=== PATIENT | female | born 2000 | race Caucasian/White ===

== ENCOUNTER 2024-03-17 10:32 | Outpatient (REF) | payer OTHER, SELFPAY ==
[2024-03-18 11:44] LABS: Influenza A PCR NEGATIVE (Negative); Influenza B PCR NEGATIVE (Negative); Resp Syncy Virus RNA Qual PCR NEGATIVE (Negative); SARS COV2 PCR INHOUSE NEGATIVE (Negative)
== END 2024-03-17 10:33 | disposition home or self-care (01) ==
LOC: HO.HMGCLNP 10:32
PROVIDERS: Visit Provider Nurse Practitioner Family
DX: Z11.52 Encounter for screening for COVID-19 (principal); R09.89 Other specified symptoms and signs involving the circulatory and respiratory systems; J06.9 Acute upper respiratory infection, unspecified
CPT/HCPCS: 0241U

== ENCOUNTER → 2024-03-17 15:36 | Outpatient (AMB) | payer OTHER, SELFPAY ==
[2024-03-17 15:41] VITALS: BP 112/70; PULSE 104; TEMP 37.1; O2SAT 98
--- NOTE | 2024-03-17 15:41 | AM.OFFWIN_ITS ---
Intake Vital Signs 03/17/24 15:41 Height 5 ft 4 in BP 112/70 Blood Pressure Location Rt brachial Position Sitting Pulse 104 H Pulse Source Pulse Oximeter Temp 98.8 F Temp Source Oral Pulse Oximetry (%) 98 Oxygen Delivery Method Room Air Intake Visit Reasons: EST/ sore thoat(lobby) Intake Note: pt is here for sore throat, body ache 2 days Patient Tobacco Use Status: Never used Tobacco Allergies No Known Allergies Allergy (Verified 03/17/24 15:42) Do you need a note to return to daycare/school/sports/work: Yes HPI HPI Comments History of Present Illness Details 23 y/o female patient who presents to [facility] with c/o sore- throat and body aches since yesterday. She has been taking OTC remedies with minimal relief. Denies fevers, chills, nausea or vomiting. PFSH Social History Patient Tobacco Use Status: Never used Tobacco Review of Systems Const All systems reviewed & are unremarkable except as noted in HPI and below Physical Exam Vital Signs: Last Vital Signs Temp 98.8 F 03/17/24 15:41 Pulse 104 H 03/17/24 15:41 BP 112/70 03/17/24 15:41 Pulse Ox 98 03/17/24 15:41 Oxygen Delivery Method Room Air 03/17/24 15:41 Const General: comfortable and no acute distress Nutritional Appearance: thin Orientation/consciousness: patient oriented x3 HEENT Head: Yes normocephalic Ears: external ears normal and TM's normal bilaterally General nose exam: Abnormal mucous membranes and turbinates present boggy and erythematous Face and sinus: Yes sinuses nontender Mouth: moist mucous membranes Throat: Yes posterior oropharynx normal Resp Effort & Inspection: normal respiratory effort, able to speak in complete sentences, no audible wheezes and no cough Auscultation: clear to auscultation bilaterally, no crackles, no rales, no rhonchi and no wheezes Cardio Rate: tachycardic Rhythm: regular rhythm Neuro General: patient oriented x3 Results AMB Rapid Strep AMB Rapid Strep Negative Last Edit by Stan Duncan CMA on 03/17/24 15 :55 Assessment & Plan Assessment & Plan (1) Upper respiratory infection: Code(s): J06.9 - Acute upper respiratory infection, unspecified Qualifiers: URI type: unspecified viral URI Qualified Code(s): J06.9 - Acute upper respiratory infection, unspecified Plan: - Rapid Strep negative - SARs - OTC sore-throat remedies - Warm fluids with honey - RTC if not better. Orders: Orders AMB Rapid Strep Screen Today Z13.9 - Encounter for screening, unspecified SARS-CoV2/FLU/RSV Today R09.89 - Other specified symptoms and signs involving the circulatory and respiratory systems Medications: New phenol 1.4% 4 sprays mucous membrane Q4H 20 mL 0RF sore throat J06.9 - Acute upper respiratory infection, unspecified acetaminophen-DM 325-10 mg/10 mL (Robitussin Cough-Sore Throat) 20 mL PO Q4H PRN 237 mL 0RF cold symptoms J06.9 - Acute upper respiratory infection, unsp ecified Coding Level of Care Code Est Pt Level 3 (38903) Diagnoses Viral upper respiratory tract infection J06.9 URI type: unspecified viral URI Time Spent (min) 15
== END ==
PROVIDERS: PCP Pediatrics; Visit Provider Nurse Practitioner Family
DX: J06.9 Acute upper respiratory infection, unspecified (principal); J02.9 Acute pharyngitis, unspecified
CPT/HCPCS: 87880; 99213

== ENCOUNTER 2024-03-17 16:05 | Outpatient (REF) | payer OTHER, SELFPAY | END 2024-03-17 16:06 | disposition home or self-care (01) | LOC: HO.LAB 16:05 | PROVIDERS: Visit Provider Nurse Practitioner Family | DX: Z13.89 Encounter for screening for other disorder (principal) ==